=== PATIENT | male | born 1975 | race African-American/Black ===

== ENCOUNTER 2017-01-24 21:52 | Emergency (ER) | payer OTHER ==
[~2017-01-24] VITALS: Ht 170.2 cm; Wt 77.1 kg
[2017-01-24 23:00] VITALS: BP 123/78
--- NOTE | 2017-01-24 23:07 | PHYS DOC ---
Adult General Chief Complaint Chief Complaint: TOE PROBLEM HPI HPI Patient is a 41 year old male presents to the emergency department stating that he has having pain to his right fifth toe. He denies any injury or trauma. He states this is been painful for the last 2 months. He states that when he hits the toe he has increased pain and discomfort. Patient does have an ulcer noted in between the fourth and fifth toe however there does not appear to be any redness or tenderness or any drainage and appears to come from the site. He does have a foul odor noted from the foot. Review of Systems Review of Systems Constitutional: Denies fever or chills [] Eyes: Denies change in visual acuity, redness, or eye pain [] HENT: Denies nasal congestion or sore throat [] Respiratory: Denies cough or shortness of breath [] Cardiovascular: No additional information not addressed in HPI [] GI: Denies abdominal pain, nausea, vomiting, bloody stools or diarrhea [] : Denies dysuria or hematuria [] Musculoskeletal: Denies back pain or joint pain. Complaint of right fifth toe pain and discomfort. Integument: Denies rash or skin lesions [] Neurologic: Denies headache, focal weakness or sensory changes [] Endocrine: Denies polyuria or polydipsia [] All other systems were reviewed and found to be within normal limits, except as documented in this note. Allergies Allergies Allergies Coded Allergies Type Severity Reaction Last Updated Verified No Known Drug Allergies 01/24/17 No Physical Exam Physical Exam Constitutional: Well developed, well nourished, no acute distress, non-toxic appearance. [] HENT: Normocephalic, atraumatic, bilateral external ears normal, oropharynx moist, no oral exudates, nose normal. [] Eyes: PERRLA, EOMI, conjunctiva normal, no discharge. [] Neck: Normal range of motion, no tenderness, supple, no stridor. [] Cardiovascular:Heart rate regular rhythm Lungs & Thorax: No respiratory distress noted Skin: Warm, dry, no erythema, no rash. Patient with an area between the fourth and fifth toe of the right foot that appears to have a emaciated deep ulcer that appears to have a calloused type skin appearing over however the area does appear to have a foul smell. No drainage or discharge noted from the site no redness noted tenderness was noted however Extremities: No tenderness, no cyanosis, no clubbing, ROM intact, no edema. [] Neurologic: Alert and oriented X 3, normal motor function, normal sensory function, no focal deficits noted. [] Psychologic: Affect normal, judgement normal, mood normal. [] Current Patient Data Vital Signs Vital Signs Date Time Temp Pulse Resp B/P (MAP) Pulse Ox O2 Delivery O2 Flow Rate FiO2 01/24/17 23:00 98.0 70 18 100 Room Air 98.0 EKG EKG [] Radiology/Procedures Radiology/Procedures [] Course & Med Decision Making Course & Med Decision Making Pertinent Labs and Imaging studies reviewed. (See chart for details) Right foot x-ray was read by Dr. Schultz as being negative for any bony involvement. Patient will be discharged home with recommendations for Tylenol and ibuprofen for pain and discomfort ice packs and elevation as much as possible. Also recommended patient to follow up with wound management for further evaluation of the area between the toes. Also recommended the patient use some lotions or creams to help soften the areas up. Recommended Epson salt soaks 4 times a day. I've spoken with the patient and/or caregivers. I've explained the patient's condition, diagnosis and treatment plan based on information available to me at this time. I've answered the patient's and/or caregivers questions and addressed any concerns. The patient and/or caregivers have a good understanding the patient's diagnosis, condition and treatment plan as can be expected at this point. Vital signs have been stabilized. The patient's condition is stable for discharge from the emergency department. The patient will pursue further outpatient evaluation with her primary care provider or other designated consulting physician as outlined in the discharge instructions. Patient and/or caregivers are agreeable to this plan of care and follow-up instructions have been explained in detail. The patient and/or caregivers have received these instructions in written format and expressed understanding of these discharge instructions. The patient and her caregivers are aware that if any significant change in condition or worsening of symptoms should prompt him to immediately return to this of the closest emergency department. If an emergent department is not readily available I would encourage him to call 911. Davidon Disclaimer Dragon Disclaimer This electronic medical record was generated, in whole or in part, using a voice recognition dictation system. Departure Departure Impression: Primary Impression: Right foot pain Disposition: 01 HOME, SELF-CARE Condition: STABLE Referrals: NO PCP (PCP) Patient Instructions: Wound Care, [id number] Additional Instructions: Activity as tolerated. Tylenol or ibuprofen for pain and discomfort. Elevation as much as possible. Warm Epsom salt soaks 4 times a day. Follow-up with wound care in the next 3-4 days. Return back to emergency department for signs and symptoms become worse. GERALDINE ROBLEDO APRN Jan 24, 2017 23:07
--- NOTE | 2017-01-25 07:51 | RAD ---
EXAM: Right foot, 3 views. HISTORY: The fifth toe pain. COMPARISON: None. FINDINGS: Frontal, lateral and oblique views of the right foot are obtained. There is no fracture, dislocation or subluxation. IMPRESSION: No acute osseous finding.
== END 2017-01-24 23:41 | disposition home or self-care (01) ==
LOC: ER 21:52
DX: M79.671 Pain in right foot (principal); M79.674 Pain in right toe(s)
CPT/HCPCS: 73630; 99284

== ENCOUNTER 2017-06-13 15:31 | Emergency (ER) | payer OTHER | END 2017-06-13 16:29 | disposition home or self-care (01) | LOC: ER 15:31 | DX: J18.1 Lobar pneumonia, unspecified organism (principal); F17.200 Nicotine dependence, unspecified, uncomplicated | CPT/HCPCS: 71046; 99284-25 ==